=== PATIENT | male | born 1985 | race Hispanic/Latino ===

== ENCOUNTER 2024-06-05 11:49 | Day surgery (SDC) | payer OTHER ==
[2024-06-05] VITALS (19 sets, daily range): BP systolic 110–136; BP diastolic 54–83; PULSE 18–90; RESP 14–18; O2SAT 99
[~2024-06-05] VITALS: Ht 157.5 cm; Wt 68.0 kg
[2024-06-05] MEDS ORDERED: LIDOCAINE HCL 1% 20 ML VIAL ONE (12:29)
[2024-06-05] MEDS ORDERED: 0.9%NACL 1000ML 1,000 ML IV SCH (12:30)
[2024-06-05 12:43] LABS: BASOPHILS # (AUTO) 0.02 K/uL (0.00-0.20); BASOPHILS % (AUTO) 0.4 % (0.0-5.0); EOSINOPHILS # (AUTO) 0.04 K/uL (0.00-0.70); EOSINOPHILS % (AUTO) 0.7 % (0.0-8.0); HEMATOCRIT 41.2 % (42-54); IMMATURE GRANULOCYTE ABSOLUTE 0.04 K/uL (0-1); LYMPHOCYTES % (AUTO) 35.4 % (21.0-51.0); MEAN CORPUSCULAR HEMOGLOBIN 29.8 pg (27.0-33.0); MEAN CORPUSCULAR HGB CONC 34.5 g/dL (32.0-36.0); MEAN CORPUSCULAR VOLUME 86.4 fL (79-99); MONOCYTES # (AUTO) 0.3 K/uL (0.1-1.0); MONOCYTES % (AUTO) 4.9 % (3.0-13.0); NEUTROPHILS # (AUTO) 3.3 K/uL (1.8-7.7); NEUTROPHILS % (AUTO) 57.9 % (40.0-77.0); PLATELET COUNT (AUTO) 235 K/uL (130-400); RED BLOOD CELL COUNT(AUTO) 4.77 MIL/uL (4.50-6.20); RED CELL DISTRIBUTION WIDTH 12.1 % (11.0-15.5); WHITE BLOOD COUNT (AUTO) 5.7 K/uL (4.8-10.8)
[2024-06-05] MEDS ORDERED: LIDOCAINE PF 100MG/5ML (2%) SYRINGE 5ML ONE (12:45)
[2024-06-05] MEDS ORDERED: ROCURONIUM BROMIDE 10MG/1ML 5ML VL ONE (12:46)
[2024-06-05] MEDS ORDERED: PROPOFOL 10 MG/ML 20ML VIAL IV ONE (12:46)
[2024-06-05] MEDS ORDERED: FENTANYL CITRATE PF 50 MCG/1 ML 2ML VIAL ONE (12:47)
[2024-06-05 12:53] LABS: INR 0.99 (0.85-1.15); PROTHROMBIN TIME 10.7 SEC (9.6-11.6)
[2024-06-05 12:54] LABS: PARTIAL THROMBOPLASTIN TIME 25.6 SEC (26.3-35.5)
[2024-06-05 12:55] LABS: BILIRUBIN,TOTAL 0.6 mg/dL (0.2-1.0); CREATININE 1.1 mg/dL (0.5-1.3); POTASSIUM 3.8 mmol/L (3.5-5.1); TOTAL PROTEIN, SERUM 7.6 g/dL (6.0-8.3)
[2024-06-05] MEDS: CEFAZOLIN SODIUM 2 GM VIAL IVPB SCH (13:01)
[2024-06-05] MEDS: TETANUS/DIPHTHERIA TOXOID [ADULT] 0.5 ML VIAL IM ONE (13:03)
[2024-06-05] MEDS: CEFAZOLIN SODIUM 2 GM VIAL ONE (13:04)
[2024-06-05] MEDS ORDERED: ONDANSETRON 4MG INJ ONE (13:21)
[2024-06-05 13:31] LABS: ABG BASE EXCESS -5.5 mmol/L (-2.0-3.0); ABG HCO3 20.5 mmol/L (21.0-28.0); ABG OXYGEN SATURATION 99.2 % (95.0-99.0); ABG PCO2 42 mmHg (35-48); ABG PH 7.305 (7.350-7.450); CARBON MONOXIDE 0.3; DEVICE COMMENT RR OR; HHb 0.8; PO2, ARTERIAL BG 419.1 mmHg (83.0-108.0); VENT MODE, BG OR VENT (ROOM AIR)
[2024-06-05] MEDS ORDERED: BACITRACIN 28.4 GM OINT TP ONE (13:41)
[2024-06-05] MEDS ORDERED: NEOSTIGMINE METHYLSULFATE 1MG/ML IV ONE (13:47)
[2024-06-05] MEDS ORDERED: GLYCOPYRROLATE 0.2 MG/ML 5 ML VIAL ONE (13:47)
[2024-06-05] MEDS: MEPERIDINE-PF 25 MG/ML SYG ONE (14:13)
[2024-06-05 14:43] LABS: BASOPHILS # (AUTO) 0.04 K/uL (0.00-0.20); BASOPHILS % (AUTO) 0.4 % (0.0-5.0); EOSINOPHILS # (AUTO) 0.03 K/uL (0.00-0.70); EOSINOPHILS % (AUTO) 0.3 % (0.0-8.0); HEMATOCRIT 36.4 % (42-54); IMMATURE GRANULOCYTE ABSOLUTE 0.07 K/uL (0-1); LYMPHOCYTES # (AUTO) 2.7 K/uL (1.0-4.8); LYMPHOCYTES % (AUTO) 25.9 % (21.0-51.0); MEAN CORPUSCULAR HEMOGLOBIN 29.9 pg (27.0-33.0); MEAN CORPUSCULAR HGB CONC 34.6 g/dL (32.0-36.0); MEAN CORPUSCULAR VOLUME 86.5 fL (79-99); MONOCYTES # (AUTO) 0.6 K/uL (0.1-1.0); MONOCYTES % (AUTO) 5.9 % (3.0-13.0); NEUTROPHILS % (AUTO) 66.8 % (40.0-77.0); PLATELET COUNT (AUTO) 257 K/uL (130-400); RED BLOOD CELL COUNT(AUTO) 4.21 MIL/uL (4.50-6.20); RED CELL DISTRIBUTION WIDTH 12.2 % (11.0-15.5); WHITE BLOOD COUNT (AUTO) 10.4 K/uL (4.8-10.8)
[2024-06-05 14:49] LABS: CREATININE 0.8 mg/dL (0.5-1.3); POTASSIUM 4.6 mmol/L (3.5-5.1)
== END 2024-06-05 17:42 | disposition home or self-care (01) ==
LOC: DAH 11:49 → EDH 11:49 → EDHIP 11:50 → UNDOADMIN 11:50 → DAH 17:42 → EDSTATUS 18:23
PROVIDERS: ATTEND Emergency Medicine
DX: S01.01XA Laceration without foreign body of scalp, initial encounter (principal); I10 Essential (primary) hypertension; M54.50 Low back pain, unspecified; X58.XXXA Exposure to other specified factors, initial encounter; Y93.89 Activity, other specified; Y92.89 Other specified places as the place of occurrence of the external cause; Y99.8 Other external cause status
CPT/HCPCS: 80048; 37799; 99285; 82435; 82947; 84132; 84295; 80053; 82803; 85025 ×2; 85610; 85730; 85018; 86850; 86900; 86901 ×2; 86923; 83605; 36415; 90714; 70450; 72125; 36600; A4452; A4649; J3010; J3490 ×2; J2001; J2704; J2405; J2710; J2175; J0690; A6446; A4930 ×2